=== PATIENT | male | born 1960 | race African-American/Black ===

== ENCOUNTER 2021-10-02 12:01 | Inpatient (IN) | payer OTHER ==
[2021-10-02] MEDS ORDERED: hydrALAZINE 20 MG/ML VIAL SLOW IVP PRN (13:01)
[2021-10-02 13:04] LABS: Hemoglobin 14.9 g/dL (13.5-17.5); Mean Corpuscular HGB CONC 33.6 g/dL (32.0-36.0); Mean Corpuscular Hemoglobin 29.6 pg (27.0-33.0); Mean Corpuscular Volume 87.9 fl (81.2-95.1); RBC Distribution Width 13.2 % (11.5-14.5); Red Blood Cell (RBC) Count 5.04 10x6/uL (4.32-5.72); White Blood Cell (WBC) Count 7.1 10x3/uL (3.5-10.5)
[2021-10-02] MEDS ORDERED: Calcium Carbonate 500 MG ChewTAB PO PRN (13:05)
[2021-10-02] MEDS ORDERED: Senokot S 8.6-50 MG TAB PO PRN (13:05)
[2021-10-02] MEDS ORDERED: Acetaminophen 325 MG TAB PO PRN (13:05)
[2021-10-02] MEDS ORDERED: Ondansetron ODT 4 MG TAB PO PRN (13:05)
[2021-10-02 13:08] LABS: #Basophils 0.1 10x3/uL (0.0-0.2); #Eosinphils 0.1 10x3/uL (0.0-0.5); #Monocytes 0.3 10x3/uL (0.0-1.1); #Neutrophils 5.6 10x3/uL (1.5-8.4); %Basophils 0.7 % (0.0-2.0); %Eosinophils 1.3 % (0.0-6.0); %Monocytes 4.3 % (0.0-10.0); %Neutrophils 78.4 % (40.0-75.0); Mean Platelet Volume 11.4 fl (7.4-10.4); Platelet Count 133 10x3/uL (150-450)
[2021-10-02 13:10] LABS: PTT 27.7 sec (22.0-33.0); Prothrombin Time 11.2 sec (9.5-12.1)
[2021-10-02] MEDS ORDERED: Aspirin Chewable 81 MG TAB ONE (13:11)
[2021-10-02 13:13] LABS: Anion Gap 14 mmol/L (10-20); BUN (Urea Nitrogen) 15 mg/dL (8.4-25.7); Calc. Creatinine Clearance 0 mL/min (70-130); Calcium 9.5 mg/dL (7.8-10.44); Carbon Dioxide 21 mmol/L (22-29); Chloride 112 mmol/L (98-107); Glucose 129 mg/dL (70-105); Potassium 3.8 mmol/L (3.5-5.1); Sodium 143 mmol/L (136-145)
[2021-10-02 15:38] LABS: SARS-CoV-2 NAA Rapid Test Not Detected (NotDetected)
[2021-10-02] MEDS ORDERED: hydrOXYzine 25 MG TAB PO SCH (17:30)
[2021-10-02] MEDS: Carvedilol 6.25 MG TAB PO SCH (18:18)
[2021-10-02 19:44] VITALS: BMI 24.3
[2021-10-02] MEDS ORDERED: Atorvastatin Calcium 40 MG TAB PO SCH (21:00)
[2021-10-03 05:52] LABS: #Eosinphils 0.1 10x3/uL (0.0-0.5); #Monocytes 0.3 10x3/uL (0.0-1.1); #Neutrophils 3.6 10x3/uL (1.5-8.4); %Basophils 0.6 % (0.0-2.0); %Eosinophils 1.3 % (0.0-6.0); %Lymphocytes 23.8 % (18.0-47.0); %Monocytes 5.9 % (0.0-10.0); %Neutrophils 68.2 % (40.0-75.0); Hemoglobin 13.3 g/dL (13.5-17.5); Mean Corpuscular HGB CONC 34.9 g/dL (32.0-36.0); Mean Corpuscular Hemoglobin 30.5 pg (27.0-33.0); Mean Corpuscular Volume 87.4 fl (81.2-95.1); Mean Platelet Volume 10.6 fl (7.4-10.4); Platelet Count 106 10x3/uL (150-450); RBC Distribution Width 13.2 % (11.5-14.5); Red Blood Cell (RBC) Count 4.36 10x6/uL (4.32-5.72); White Blood Cell (WBC) Count 5.3 10x3/uL (3.5-10.5)
[2021-10-03 06:03] LABS: Anion Gap 13 mmol/L (10-20); BUN (Urea Nitrogen) 16 mg/dL (8.4-25.7); Calc. Creatinine Clearance 73 mL/min (70-130); Carbon Dioxide 23 mmol/L (22-29); Cardiac Risk 6.3 (Less than 4.5); Chloride 110 mmol/L (98-107); Cholesterol 139 mg/dl (< 200 Desired); Glucose 135 mg/dL (70-105); HDL Cholesterol 22 mg/dL (>60 Neg Risk); LDL Cholesterol, Calculated 67 mg/dL; Magnesium 2.1 mg/dL (1.6-2.6); Potassium 3.7 mmol/L (3.5-5.1); Sodium 142 mmol/L (136-145); Triglycerides 248 mg/dL (Less than 150)
[2021-10-03 06:16] LABS: Syphilis Antibody Nonreactive (Nonreactive)
[2021-10-03] MEDS ORDERED: Sacubitril 49 MG/Valsartan 51 MG TABLET PO SCH (09:00)
[2021-10-03] MEDS ORDERED: Potassium Chloride 10 MEQ TAB PO SCH (09:00)
[2021-10-03] MEDS ORDERED: Furosemide 40 MG TAB PO SCH (09:00)
[2021-10-03] MEDS ORDERED: Lisinopril 5 MG TAB PO SCH (09:00)
[2021-10-03] MEDS ORDERED: Enoxaparin Sodium 40 MG/0.4 ML SYRINGE SC SCH (09:00)
[2021-10-03] MEDS ORDERED: Aspirin 81 mg Enteric Coated Tablet PO SCH (09:00)
[2021-10-03] MEDS: hydrOXYzine 25 MG TAB PO SCH ×2 (10:02→15:24)
[2021-10-03] MEDS: Carvedilol 6.25 MG TAB PO SCH (10:02)
[2021-10-03 12:58] VITALS: BP 121/68; TEMP 97.2
[2021-10-04] MEDS ORDERED: Folic Acid 1 MG TAB PO SCH (09:00)
== END 2021-10-03 16:40 | disposition home or self-care (01) | DRG 65 ==
LOC: CSHERS 12:01 → CSHTELE 17:13
PROVIDERS: ADMIT Family Medicine; ATTEND Nurse Practitioner Family
DX: I63.9 Cerebral infarction, unspecified (principal); I50.22 Chronic systolic (congestive) heart failure; F41.9 Anxiety disorder, unspecified; M10.9 Gout, unspecified; F17.210 Nicotine dependence, cigarettes, uncomplicated; I11.0 Hypertensive heart disease with heart failure; E78.5 Hyperlipidemia, unspecified; R47.81 Slurred speech; R73.03 Prediabetes; I49.9 Cardiac arrhythmia, unspecified; Z20.822 Contact with and (suspected) exposure to COVID-19; Z95.0 Presence of cardiac pacemaker; Z79.82 Long term (current) use of aspirin; Z79.899 Other long term (current) drug therapy
CPT/HCPCS: 36415; 70551; 80048; 80061; 82607; 82746; 83036; 83735; 84443; 85025; 85610; 85730; 86780; 93005; 93306; 93880; J1650; U0002